=== PATIENT | male | born 1950 | race Caucasian/White ===

== ENCOUNTER → 2017-07-04 | Outpatient (CLI) | payer MEDICARE, BC ==
--- NOTE | ~2017-07-04 | TH ---
Unit #: [id number] #: [id number] Patient: ASHLEY LEI [id number] [address] [address] [id number] MR#: [id number] NAME: AHSLEY LIE. : 1950 SEX: M STUDY DATE/TIME: 07/04/2017 UNIT: [facility] ROOM: STUDY DESCRIPTION: Imaging and ECG Attending Physician: Zev Geronimo M.D. Referring Physician: Zev Geronimo M.D. Primary Care Physician: David Ruiz M.D. CARDIOLOGY REPORT EXAM Stress nuclear and ECG study INDICATION Hypertension, atrial fibrillation with cardioversion, preoperative clearance for assessment of operative risk. SUMMARY Patient was given Lexiscan intravenously as well as technetium-99m Cardiolite, 10.4 and 31.4 mCi and rest and stress respectively. Appropriate views were obtained. FINDINGS The resting ECG showed no ST-segment changes. With stress there were no ST-segment changes. The heart rate increased from 63 to 78 beats per minute, and blood pressure decreased from 222/115 to 180/99. Patient did not experience any symptoms. Perfusion images demonstrate normal perfusion throughout the myocardium both at rest and stress. Planar images demonstrate no significant patient motion either at rest or stress. There is no significant lung uptake or RV enlargement. Gated perfusion wall motion analysis demonstrates normal wall motion throughout the myocardium with end-diastolic volume 126 mL, ejection fraction 58%. Summed stress score is 1. Summed difference score is 1. IMPRESSION 1. No evidence of ischemia or infarction. 2. Mild LV enlargement. 3. Normal LV function. 4. Normal stress ECG. 5. Significant resting hypertension. 6. No ECG evidence of ischemia. Dictated by... Richard Coronado M.D. Unit #: [id number] #: [id number] Patient: ASHLEY LEI MAE/jourdan TD: 07/07/2017 22:44 JOB #: [id number] CARDIOLOGY REPORT Page 1 of 1 X Richard Coronado MD CARDIOLOGY REPORT
== END | disposition home or self-care (01) ==
LOC: CNUC 08:48
DX: Z01.810 Encounter for preprocedural cardiovascular examination (principal); R07.9 Chest pain, unspecified; I51.7 Cardiomegaly
CPT/HCPCS: 78452; 93017; A9500; J2785